=== PATIENT | female | born 1960 | race Caucasian/White ===

== ENCOUNTER 2018-11-29 15:58 | Emergency (ER) | payer BC ==
[2018-11-29] MEDS ORDERED: Sodium Chloride 0.9% 10 ML Syringe FLUSH PRN (16:21)
[2018-11-29] MEDS ORDERED: Aspirin 81 MG Tab.Chew PO ONE (16:21)
[2018-11-29] MEDS: Nitroglycerin 0.4 MG Tab.SL SL PRN ×2 (16:28→16:35)
--- NOTE | 2018-11-29 16:45 | CR ---
Clinical history: 58-year-old female complaining of chest pain. Interpretation: Negative exam. Upright AP portable chest film (external night monitor leads) confirms cardiac silhouette which is normal size/configuration. No cephalization of vascular flow, signs of alveolar edema or dependent pleural effusion. No lung mass, hilar lymphadenopathy or focal lobar pneumonia. No atelectasis/collapse. No pneumothorax or free subdiaphragmatic air. CONCLUSION: No acute cardiopulmonary normality.
[2018-11-29 17:05] LABS: ANION GAP 15.1; CHLORIDE,CL 98 mmol/L (101-111); SODIUM,NA 134 mmol/L (135-145)
--- NOTE | 2018-11-29 18:37 | EDM.PDOC ---
Scribed by Karen Keller 11/29/18 1833 for Saji Deshpande MD <Saji Deshpande - Last Filed: 11/29/18 18:28> ED HPI GENERAL MEDICAL PROBLEM - General Chief Complaint: Chest Pain Stated Complaint: CHEST PAIN [id number] Time Seen by Provider: 11/29/18 16:04 Source of Information: Reports: Patient, RN, RN Notes Reviewed History Limitations: Reports: No Limitations - History of Present Illness INITIAL COMMENTS - FREE TEXT/NARRATIVE: Patient presents to ER stating she had onset of chest pain yesterday. Patient is at the left upper breast area sharp in nature and has been continuous. She admits to mild shortness of breath. She was shoveling snow last week and fell onto her right side, and she is unsure if the fall has anything to do with the pain that she is experiencing now. She denies cough, fever, chills, nausea, abdominal pain, orthopnea, palpitations or edema. No history of cardiac problems. Onset Date: 11/28/18 Duration: Constant Location: Reports: Chest Quality: Reports: Ache Severity: Moderate Improves with: Reports: None Worsens with: Reports: Movement (and deep breathing) Associated Symptoms: Reports: No Other Symptoms Left Upper Breast Pain Score (Numeric/FACES): 8 - Related Data Allergies Allergy/AdvReac Type Severity Reaction Status Date / Time sumatriptan [From Imitrex] Allergy Swollen Verified 11/29/18 16:10 Tongue Home Meds: Home Meds Aspirin [Halfprin] 81 mg PO ASDIRECTED PRN 11/29/18 [History] Famciclovir 500 mg PO ASDIRECTED PRN 11/29/18 [History] Omeprazole 20 mg PO ASDIRECTED PRN 11/29/18 [History] Venlafaxine HCl [Venlafaxine ER] 150 mg PO DAILY 11/29/18 [History] Past Medical History Gastrointestinal History: Reports: GERD Psychiatric History: Reports: Depression Endocrine/Metabolic History: Reports: Obesity/BMI 30+ Social & Family History - Family History Family Medical History: Noncontributory - Tobacco Use Smoking Status *Q: Never Smoker - Living Situation & Occupation Occupation: Employed ED ROS GENERAL - Review of Systems Review Of Systems: ROS reveals no pertinent complaints other than HPI. ED EXAM, GENERAL - Physical Exam Exam: See Below Exam Limited By: No Limitations General Appearance: Alert, WD/WN, No Apparent Distress, Obese Eye Exam: Bilateral Eye: Normal Inspection Nose: Normal Inspection, Normal Mucosa, No Blood Throat/Mouth: Normal Inspection, Normal Lips, Normal Teeth, Normal Gums, Normal Oropharynx, Normal Voice, No Airway Compromise Head: Atraumatic, Normocephalic Neck: Normal Inspection, Supple, Non-Tender, Full Range of Motion Respiratory/Chest: No Respiratory Distress, Lungs Clear, Normal Breath Sounds, No Accessory Muscle Use, Other (mild but reproducible left upper chest wall pain to firm palpation) Cardiovascular: Normal Peripheral Pulses, Regular Rate, Rhythm, No Edema, No Gallop, No JVD, No Murmur, No Rub GI/Abdominal: Normal Bowel Sounds, Soft, Non-Tender, No Organomegaly, No Distention, No Abnormal Bruit, No Mass Back Exam: Normal Inspection, Full Range of Motion, NT Extremities: Normal Inspection, Normal Range of Motion, Non-Tender, Normal Capillary Refill, No Pedal Edema Neurological: Alert, Oriented, CN II-XII Intact, Normal Cognition, Normal Gait, No Motor/Sensory Deficits Psychiatric: Normal Affect, Normal Mood Skin Exam: Warm, Dry, Intact, Normal Color, No Rash EKG INTERPRETATION EKG Date: 11/29/18 Time: 16:04 Rhythm: Other (sinus rhythm) Rate (Beats/Min): 75 [place]: LAD-Left Q[place] Deviation (borderline.) P-Wave: Present QRS: Normal ST-T: Other (Borderline T abnormalities, diffuse leads.) QT: Normal Comparison: NA - No Prior EKG Course - Vital Signs Last Recorded V/S: Last Vital Signs Temp 36.4 C 11/29/18 20:27 Pulse 73 11/29/18 20:27 Resp 16 11/29/18 20:27 BP 129/58 L 11/29/18 20:27 Pulse Ox 98 11/29/18 20:27 - Orders/Labs/Meds Orders: Active Orders 24 hr Category Date Time Status EKG 12 Lead [EKG Documentation Completion] [RC] STAT Care 11/29/18 16:22 Active EKG Documentation Completion [RC] ROUTINE Care 11/29/18 21:41 Active Peripheral IV Care [RC] . DIRECTED Care 11/29/18 16:22 Active Heart Healthy Diet [DIET] Diet 11/30/18 Breakfast Active Nitroglycerin [Nitrostat] Med 11/29/18 16:21 Active 0.4 mg SL Q5M PRN Sodium Chloride 0.9% [Saline Flush] Med 11/29/18 16:21 Active 10 ml FLUSH ASDIRECTED PRN Peripheral IV Insertion Adult [OM.PC] Stat Oth 11/29/18 16:22 Ordered Medication Orders Nitroglycerin (Nitrostat) 0.4 mg SL Q5M PRN PRN Reason: Chest Pain Last Admin: 11/29/18 16:35 Dose: 0.4 mg Admin: 11/29/18 16:28 Dose: 0.4 mg Sodium Chloride (Saline Flush) 10 ml FLUSH ASDIRECTED PRN PRN Reason: Keep Vein Open Last Admin: 11/29/18 16:56 Dose: 10 ml Labs: Laboratory Tests 11/29/18 11/29/18 11/29/18 Range/Units 16:30 16:30 16:30 WBC 8.2 (5.0-10.0) 10^3/uL RBC 4.26 (4.2-5.4) 10^6/uL Hgb 12.9 (12.0-16.0) g/dL Hct 38.6 (37.0-47.0) % MCV 90.6 (80-100) fL MCH 30.3 (27.0-34.0) pg MCHC 33.4 (33.0-35.0) g/dL Plt Count 266 (150-450) 10^3/uL Neut % (Auto) 58.9 (42.2-75.2) % Lymph % (Auto) 30.8 (20.5-50.1) % Davie % (Auto) 6.2 (2-8) % Eos % (Auto) 4.0 H (1.0-3.0) % Baso % (Auto) 0.1 (0.0-1.0) % D-Dimer, Quantitative < 100 (0-400) ng/mL Sodium 134 L (135-145) mmol/L Potassium 4.1 (3.6-5.0) mmol/L Chloride 98 L (101-111) mmol/L Carbon Dioxide 25.0 (21.0-31.0) mmol/L Anion Gap 15.1 BUN 18 (7-18) mg/dL Creatinine 1.0 (0.6-1.3) mg/dL Est Cr Clr Drug Dosing 48.50 mL/min Estimated GFR (MDRD) 57 BUN/Creatinine Ratio 18.00 Glucose 89 (74-105) mg/dL Calcium 9.1 (8.4-10.2) mg/dl Total Bilirubin 0.5 (0.2-1.0) mg/dL AST 21 (10-42) IU/L ALT 16 (10-60) IU/L Alkaline Phosphatase 56 (42-121) IU/L Troponin I < 0.02 (0.00-0.02) ng/ml Total Protein 7.2 (6.7-8.2) g/dl Albumin 4.0 (3.2-5.5) g/dl Globulin 3.2 Albumin/Globulin Ratio 1.25 Lipase 47 (22-51) U/L 11/29/18 Range/Units 21:00 WBC (5.0-10.0) 10^3/uL RBC (4.2-5.4) 10^6/uL Hgb (12.0-16.0) g/dL Hct (37.0-47.0) % MCV (80-100) fL MCH (27.0-34.0) pg MCHC (33.0-35.0) g/dL Plt Count (150-450) 10^3/uL Neut % (Auto) (42.2-75.2) % Lymph % (Auto) (20.5-50.1) % Davie % (Auto) (2-8) % Eos % (Auto) (1.0-3.0) % Baso % (Auto) (0.0-1.0) % D-Dimer, Quantitative (0-400) ng/mL Sodium (135-145) mmol/L Potassium (3.6-5.0) mmol/L Chloride (101-111) mmol/L Carbon Dioxide (21.0-31.0) mmol/L Anion Gap BUN (7-18) mg/dL Creatinine (0.6-1.3) mg/dL Est Cr Clr Drug Dosing mL/min Estimated GFR (MDRD) BUN/Creatinine Ratio Glucose (74-105) mg/dL Calcium (8.4-10.2) mg/dl Total Bilirubin (0.2-1.0) mg/dL AST (10-42) IU/L ALT (10-60) IU/L Alkaline Phosphatase (42-121) IU/L Troponin I < 0.02 (0.00-0.02) ng/ml Total Protein (6.7-8.2) g/dl Albumin (3.2-5.5) g/dl Globulin Albumin/Globulin Ratio Lipase (22-51) U/L Meds: Medications Generic Name Dose Route Start Last Admin Trade Name Freq PRN Reason Stop Dose Admin Nitroglycerin 0.4 mg 11/29/18 16:21 11/29/18 16:35 Nitrostat SL 0.4 mg Q5M PRN Administration Chest Pain Sodium Chloride 10 ml 11/29/18 16:21 11/29/18 16:56 Saline Flush FLUSH 10 ml ASDIRECTED PRN Administration Keep Vein Open Discontinued Medications Generic Name Dose Route Start Last Admin Trade Name Freq PRN Reason Stop Dose Admin Aspirin 324 mg 11/29/18 16:21 11/29/18 16:26 Aspirin PO 11/29/18 16:22 324 mg ONETIME ONE Administration - Radiology Interpretation Free Text/Narrative:: Chest x-ray: No acute cardiopulmonary abnormality. See rad report. - Re-Assessments/Exams Free Text/Narrative Re-Assessment/Exam: 11/29/18 Pt's pain was relived with the second Nitroglycerin 0.4mg SL and did not return. Pt's had no acute EKG changes and no elevation of Troponin on the initial lab draw. Plan to hold the pt as extended ER for repeat Trop. and EKG at 2100HRS. Care of pt transferred to Rayshawn CLEMENTS at 1900HR shift change. Departure - Departure Disposition: Home, Self-Care 01 Clinical Impression: Nonspecific chest pain Instructions: Nonspecific Chest Pain Forms: ED Department Discharge Care Plan Goals: The patient was advised of the examination, lab, EKG, x-ray, repeat lab and repeat EKG results during the visit. The patient was encouraged to follow-up with her primary care facility for continued evaluation and further management. If the patient has any additional symptoms or concerns, the patient should either return to the emergency department or visit her primary care facility. <Rayshawn Ann M - Last Filed: 11/29/18 21:33> Departure - Departure Time of Disposition: 21:31 Condition: Fair I have read and agree with the documentation that has been completed regarding this visit. By signing this record, I attest that the documentation was completed in my physical presence and is an accurate record of the encounter.
== END 2018-11-29 21:51 | disposition home or self-care (01) ==
LOC: DL.ED 15:58
DX: R07.9 Chest pain, unspecified (principal); F32.9 Major depressive disorder, single episode, unspecified; K21.9 Gastro-esophageal reflux disease without esophagitis; Z88.8 Allergy status to other drugs, medicaments and biological substances; Z79.899 Other long term (current) drug therapy; Z79.82 Long term (current) use of aspirin
CPT/HCPCS: 36415; 71045; 80053; 83690; 84484; 85025; 85379; 93005; 99285; A9270

== ENCOUNTER 2018-12-04 14:15 | Emergency (ER) | payer BC ==
[2018-12-04] MEDS ORDERED: Lidocaine 1% 30 ML SDV INJECT ONE (14:21)
[2018-12-04] MEDS ORDERED: Bacitracin Oint 1 GM U/D Packet TOP ONE (14:21)
--- NOTE | 2018-12-04 15:02 | EDM.PDOC ---
Scribed by Karen Keller 12/04/18 150 for Saji Deshpande MD ED HPI GENERAL MEDICAL PROBLEM - General Chief Complaint: Upper Extremity Injury/Pain Stated Complaint: CUT LEFT HAND [id number] Time Seen by Provider: 12/04/18 14:20 Source of Information: Reports: Patient, RN, RN Notes Reviewed History Limitations: Reports: No Limitations - History of Present Illness INITIAL COMMENTS - FREE TEXT/NARRATIVE: Patient presents to ER with a complaint of a laceration to her left thumb which is about 1.2cm. She cut it on a steak knife. Last tetanus was approximately 3 years ago. No other injury. Onset: Today Location: Reports: Upper Extremity, Left Quality: Reports: Ache Severity: Mild Improves with: Reports: None Worsens with: Reports: None Associated Symptoms: Reports: No Other Symptoms - Related Data Allergies Allergy/AdvReac Type Severity Reaction Status Date / Time sumatriptan [From Imitrex] Allergy Swollen Verified 12/04/18 14:19 Tongue Home Meds: Home Meds Aspirin [Halfprin] 81 mg PO ASDIRECTED PRN 11/29/18 [History] Famciclovir 500 mg PO ASDIRECTED PRN 11/29/18 [History] Omeprazole 20 mg PO ASDIRECTED PRN 11/29/18 [History] Venlafaxine HCl [Venlafaxine ER] 150 mg PO DAILY 11/29/18 [History] Past Medical History HEENT History: Reports: None Cardiovascular History: Reports: None Respiratory History: Reports: None Gastrointestinal History: Reports: GERD Genitourinary History: Reports: None 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 Musculoskeletal History: Reports: None Neurological History: Reports: None Psychiatric History: Reports: Depression Endocrine/Metabolic History: Reports: Obesity/BMI 30+ Hematologic History: Reports: None Immunologic History: Reports: None Oncologic (Cancer) History: Reports: None Dermatologic History: Reports: None - Infectious Disease History Infectious Disease History: Reports: Chicken Pox - Past Surgical History Head Surgeries/Procedures: Reports: None Social & Family History - Family History Family Medical History: Noncontributory - Caffeine Use Caffeine Use: Reports: Coffee, Soda - Living Situation & Occupation Occupation: Employed Review of Systems - Review of Systems Review Of Systems: ROS reveals no pertinent complaints other than HPI. ED EXAM, GENERAL - Physical Exam Exam: See Below Exam Limited By: No Limitations General Appearance: Alert, WD/WN, No Apparent Distress Head: Atraumatic, Normocephalic Neck: Normal Inspection Respiratory/Chest: No Respiratory Distress Cardiovascular: Normal Peripheral Pulses Extremities: Normal Range of Motion, Normal Capillary Refill, Other (left dorsal proximal thumb with a 1.2cm linear laceration to the depth of subcutaneous tissue. No active bleeding. No foreign body. ) ED TRAUMA EXTREMITY PROCEDURES - Laceration/Wound Repair Left Dorsal Digit - 1st (Thumb) Lac/Wound Length In cm: 1.2 Appearance: Subcutaneous, Linear, Clean Distal NVT: Neuro & Vascular Intact, No Tendon Injury Anesthetic Type: Local Local Anesthesia - Lidocaine (Xylocaine): 1% Plain Local Anesthetic Volume: 3cc Skin Prep: Chlorhexidine (Hibiciens), Saline, Sterile Drape Saline Irrigation (cc's): 50 Exploration/Debridement/Repair: Wound Explored, In a Bloodless Field, Explored to Base, Minimal Debridement, Minimally Undermined Closed With: Sutures Suture Size: 3-0 # of Sutures: 3 Suture Type: Nylon, Interrupted Drain Placement: No Sterile Dressing Applied: Nurse Tetanus Status Addressed: Yes Complications: No Course - Vital Signs Last Recorded V/S: Last Vital Signs Temp 36.3 C 12/04/18 14:22 Pulse 88 12/04/18 14:22 Resp 16 12/04/18 14:22 BP 152/71 H 12/04/18 14:22 Pulse Ox 95 12/04/18 14:22 - Orders/Labs/Meds Meds: Medications Discontinued Medications Generic Name Dose Route Start Last Admin Trade Name Norman PRN Reason Stop Dose Admin Bacitracin 1 dose 12/04/18 14:21 12/04/18 14:29 Bacitracin Oint 1 Gm TOP 12/04/18 14:22 1 dose ONETIME ONE Administration Lidocaine HCl 30 ml 12/04/18 14:21 12/04/18 14:29 Xylocaine-Mpf 1% INJECT 12/04/18 14:22 30 ml ONETIME ONE Administration Departure - Departure Time of Disposition: 15:01 Disposition: Home, Self-Care 01 Condition: Good Clinical Impression: Laceration of left thumb Qualifiers: Encounter type: initial encounter Damage to nail status: without damage Foreign body presence: without foreign body Qualified Code(s): S61.012A - Laceration without foreign body of left thumb without damage to nail, initial encounter - Discharge Information *PRESCRIPTION DRUG MONITORING PROGRAM REVIEWED*: Not Applicable *COPY OF PRESCRIPTION DRUG MONITORING REPORT IN PATIENT MANDI: Not Applicable Instructions: Laceration Care, Adult Forms: ED Department Discharge Additional Instructions: Follow up in clinic in 7 to 10 days for suture removal. I have read and agree with the documentation that has been completed regarding this visit. By signing this record, I attest that the documentation was completed in my physical presence and is an accurate record of the encounter.
== END 2018-12-04 15:09 | disposition home or self-care (01) ==
LOC: DL.ED 14:15
DX: S61.012A Laceration without foreign body of left thumb without damage to nail, initial encounter (principal); E66.9 Obesity, unspecified; Z88.8 Allergy status to other drugs, medicaments and biological substances; W26.0XXA Contact with knife, initial encounter
CPT/HCPCS: 12001; 99282

== ENCOUNTER 2021-03-18 12:27 | Emergency (ER) | payer BC ==
--- NOTE | 2021-03-18 12:50 | EDM.PDOC ---
ED HPI GENERAL MEDICAL PROBLEM - General Chief Complaint: Headache Stated Complaint: BAD HEADACHE Time Seen by Provider: 03/18/21 12:48 Source of Information: Reports: Patient, RN, RN Notes Reviewed History Limitations: Reports: No Limitations - History of Present Illness INITIAL COMMENTS - FREE TEXT/NARRATIVE: Minoo is a 60 y/o female who presents to the ED via personal vehicle with complaints of headache. The patient attests to history of severe headache in December 2020 for which she underwent workup, including brain MRI, via her PCP. She was subsequently diagnosed and treated for pansinusitis and has been headache free since. Today, she reports she was eating her lunch when she abruptly experienced severe headache to her left occipital lobe which radiates to the top of her head. She characterizes the pain as sharp in nature and a 10/10 pain. She has not taken any medications for this pain and notices improvement in symptoms with laying down or standing; the headache worsens while sitting. She does attest to recent muscle tightness to her left shoulder and neck for which she has an appointment with the chiropractor tomorrow. She denies fever, shaking chills, vision changes, cough, photophobia, phonophobia, cough, sore throat, sinus pain/pressure/drainage, palpitations, nausea, vomiting, or diarrhea. She denies tobacco, alcohol, or recreational drug use. Headache Pain Score (Numeric/FACES): 8 - Related Data Allergies Allergy/AdvReac Type Severity Reaction Status Date / Time propoxyphene Allergy unknown Verified 03/18/21 12:36 sumatriptan [From Imitrex] Allergy Swollen Verified 03/18/21 12:36 Tongue Home Meds: Home Meds Aspirin [Halfprin] 81 mg PO ASDIRECTED PRN 11/29/18 [History] Famciclovir 500 mg PO ASDIRECTED PRN 11/29/18 [History] Omeprazole 20 mg PO ASDIRECTED PRN 11/29/18 [History] Venlafaxine HCl [Venlafaxine ER] 150 mg PO DAILY 11/29/18 [History] Past Medical History HEENT History: Reports: None Cardiovascular History: Reports: Hypertension Respiratory History: Reports: None Gastrointestinal History: Reports: GERD Genitourinary History: Reports: None 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 Musculoskeletal History: Reports: None Neurological History: Reports: None Psychiatric History: Reports: Depression Endocrine/Metabolic History: Reports: Obesity/BMI 30+ Hematologic History: Reports: None Immunologic History: Reports: None Oncologic (Cancer) History: Reports: None Dermatologic History: Reports: None - Infectious Disease History Infectious Disease History: Reports: Chicken Pox - Past Surgical History Head Surgeries/Procedures: Reports: None Social & Family History - Family History Family Medical History: No Pertinent Family History - Tobacco Use Tobacco Use Status *Q: Never Tobacco User - Caffeine Use Caffeine Use: Reports: Coffee, Soda - Recreational Drug Use Recreational Drug Use: No - Living Situation & Occupation Occupation: Employed ED ROS GENERAL - Review of Systems Review Of Systems: Comprehensive ROS is negative, except as noted in HPI. - Physical Exam Exam: See Below Exam Limited By: No Limitations General Appearance: Alert, Anxious, Moderate Distress (Headache) Eye Exam: Bilateral Eye: EOMI, Normal Inspection, PERRL (4mm) Ears: Normal External Exam, Normal Canal, Hearing Grossly Normal, Normal TMs Nose: Normal Inspection, Normal Mucosa, No Blood Throat/Mouth: Normal Inspection, Normal Lips, Normal Oropharynx, Normal Voice, No Airway Compromise Head Exam: Atraumatic, Normocephalic Neck: Normal Inspection, Supple, Non-Tender, Full Range of Motion Respiratory/Chest: No Respiratory Distress, Lungs Clear, Normal Breath Sounds, No Accessory Muscle Use, Chest Non-Tender Cardiovascular: Normal Peripheral Pulses, Regular Rate, Rhythm, No Edema, No Gallop, No JVD, No Murmur, No Rub GI/Abdominal: Normal Bowel Sounds, Soft, Non-Tender, No Distention, No Mass, Pelvis Stable (Female) Exam: Deferred Rectal (Female) Exam: Deferred Neuro Exam (Abbreviated): Alert, Oriented, CN II-XII Intact, Normal Cognition, Normal Gait, Normal Reflexes, No Motor/Sensory Deficits Back Exam: Normal Inspection, Full Range of Motion Extremities: Normal Inspection, Normal Range of Motion, Non-Tender, No Pedal Edema, Normal Capillary Refill Psychiatric: Anxious Skin Exam: Warm, Dry, Intact, Normal Color, No Rash Course - Vital Signs Last Recorded V/S: Last Vital Signs Temp 97.4 F 03/18/21 12:38 Pulse 70 03/18/21 12:38 Resp 16 03/18/21 12:38 BP 177/75 H 03/18/21 12:38 Pulse Ox 97 03/18/21 12:38 - Orders/Labs/Meds Meds: Medications Discontinued Medications Generic Name Dose Route Start Last Admin Trade Name Norman PRN Reason Stop Dose Admin Diphenhydramine HCl 50 mg 03/18/21 13:06 03/18/21 13:20 Diphenhydramine 50 Mg/Ml Sdv IM 03/18/21 13:07 50 mg ONETIME ONE Administration Famotidine 20 mg 03/18/21 13:07 03/18/21 13:20 Famotidine 20 Mg Tab PO 03/18/21 13:08 20 mg ONETIME ONE Administration Ketorolac Tromethamine 60 mg 03/18/21 13:06 03/18/21 13:20 Ketorolac 30 Mg/Ml Sdv IVPUSH 03/18/21 13:07 Not Given ONETIME ONE Ketorolac Tromethamine 60 mg 03/18/21 13:09 03/18/21 13:20 Ketorolac 30 Mg/Ml Sdv IM 03/18/21 13:10 60 mg ONETIME ONE Administration - Re-Assessments/Exams Free Text/Narrative Re-Assessment/Exam: 03/18/21 Given recent work-up for severe headache, as well a likely etiology for cervicogenic headache, will treat with Ketorolac 60mg IM and Benadryl 50mg IM. Patient reports history of mild epigastric discomfort with NSAIDS, will prophylactically treat with Pepcid. Patient denies Hx of GI bleed. Patient reports complete resolution of headache following medications. Follow up and supportive cares reviewed with patient. Red flag signs and symptoms which would warrant reevaluation reviewed. Patient verbalized understanding and agreement with the plan of care. Departure - Departure Time of Disposition: 14:27 Disposition: Home, Self-Care 01 Condition: Good Clinical Impression: Cervicogenic headache - Discharge Information *PRESCRIPTION DRUG MONITORING PROGRAM REVIEWED*: Not Applicable *COPY OF PRESCRIPTION DRUG MONITORING REPORT IN PATIENT MANDI: Not Applicable Instructions: Cervicogenic Headache Referrals: Adair Brooks MD [Primary Care Provider] - Forms: ED Department Discharge Additional Instructions: 1.) Follow up with your primary care provider regarding today's visit; you may benefit from a referral to physical therapy. 2.) Continue with acetaminophen (Tylenol) 650mg every six hours, as headache persists. 3.) Drink plenty of water to stay hydrated. 4.) Alternate ice and heat to your shoulder/neck to provide relief of muscle tightness. 5.) You may try Biofreeze to the affected neck/shoulder. Sepsis Event Note (ED) - Evaluation Sepsis Screening Result: No Definite Risk
[2021-03-18] MEDS ORDERED: Ketorolac 30 MG/ML SDV IVPUSH ONE (13:06)
[2021-03-18] MEDS ORDERED: diphenhydrAMINE 50 MG/ML SDV IM ONE (13:06)
[2021-03-18] MEDS ORDERED: Famotidine 20 MG Tab PO ONE (13:07)
[2021-03-18] MEDS ORDERED: Ketorolac 30 MG/ML SDV IM ONE (13:09)
== END 2021-03-18 14:35 | disposition home or self-care (01) ==
LOC: DL.ED 12:27
DX: R51.9 Headache, unspecified (principal); K21.9 Gastro-esophageal reflux disease without esophagitis; Z88.6 Allergy status to analgesic agent; Z88.8 Allergy status to other drugs, medicaments and biological substances; Z79.82 Long term (current) use of aspirin; Z79.899 Other long term (current) drug therapy
CPT/HCPCS: 96372; 99283; 99284; A9270-GY; J1200; J1885

== ENCOUNTER 2022-09-19 06:25 | Day surgery (SDC) | payer BC, OTHER ==
[~2022-09-19 06:25] MED LIST: Dextrose 5%-0.45% NaCl 1,000 ML IV SCH; Midazolam 1 MG/ML 2 ML SDV ONE; Sodium Chloride 0.9% 10 ML Syringe FLUSH PRN; Sodium Chloride 0.9% 10 ML Syringe FLUSH SCH; fentaNYL 100 MCG/2 ML SDV ONE
[2022-09-19] MEDS ORDERED: fentaNYL 100 MCG/2 ML SDV IV ONE ×5 (06:26→07:54)
[2022-09-19] MEDS ORDERED: Midazolam 1 MG/ML 2 ML SDV IV ONE ×7 (06:26→07:51)
== END 2022-09-19 09:30 | disposition home or self-care (01) ==
LOC: DL.ENDO 06:25
PROVIDERS: ATTEND Internal Medicine Gastroenterology
DX: Z12.11 Encounter for screening for malignant neoplasm of colon (principal); E66.09 Other obesity due to excess calories; F41.1 Generalized anxiety disorder; F32.A Depression, unspecified; Z98.890 Other specified postprocedural states; Z68.34 Body mass index [BMI] 34.0-34.9, adult; Z88.5 Allergy status to narcotic agent; Z88.8 Allergy status to other drugs, medicaments and biological substances; Z79.82 Long term (current) use of aspirin
CPT/HCPCS: 45378; J2250; J3010; J7042

== ENCOUNTER 2025-03-21 22:56 | Emergency (ER) | payer BC, OTHER ==
[2025-03-21] MEDS: Ketorolac 30 MG/ML SDV IM ONE (23:31)
== END 2025-03-21 23:45 | disposition home or self-care (01) ==
LOC: DL.ED 22:56
DX: S63.501A Unspecified sprain of right wrist, initial encounter (principal); I10 Essential (primary) hypertension; Z88.8 Allergy status to other drugs, medicaments and biological substances; Z79.899 Other long term (current) drug therapy; Z86.16 Personal history of COVID-19; W18.39XA Other fall on same level, initial encounter; Y93.89 Activity, other specified
CPT/HCPCS: 73110; 73130; 96372; 99283; J1885